=== PATIENT | male | born 1975 | race Caucasian/White ===

== ENCOUNTER 2018-02-24 07:40 | Emergency (ER) | payer BC ==
[~2018-02-24] VITALS: Ht 172.7 cm; Wt 106.1 kg
[~2018-02-24 07:40] MED LIST: AMIT25TA9 PO; ASP81TEC PO; CYCL10TA9 PO; DIAZ5TAB3 PO; DULO30CA PO; GABA800T2 PO; GABAPENTIN PO; HYDR-3720 PO; HYDR1TAB PO; METO50TA7 PO; METR250T; OXYC-12 PO; OXYC5TAB PO; RFMP300C PO; RNT150T; TAPE100T PO; [UNRECOGNIZED DRUG - OTHER] NS
--- OUTSIDE RECORDS SUMMARY | 2018-02-24 07:45 | XMS REPORT ---
Author Author COCO PARKS [facility] Address Unknown Care Team Providers Care Financial Foundations Associate Name Role Phone COCO PARKS Unavailable PROBLEMS Unknown Problems ALLERGIES No Information ENCOUNTERS Encounter Location Date Diagnosis [facility] [id number], [place] [id number] Dec, [facility] [id number] [place] [phone] October, Dental examination Z01.20 [facility] [place] [id number], [place] [id number] October, IMMUNIZATIONS No Known Immunizations SOCIAL HISTORY Never Assessed REASON FOR VISIT LVM PLAN OF CARE VITAL SIGNS MEDICATIONS Unknown Medications RESULTS No Results PROCEDURES No Known procedures INSTRUCTIONS MEDICATIONS ADMINISTERED No Known Medications MEDICAL (GENERAL) HISTORY Type Description Date Medical History high blood pressure Medical History rods in back and both arms Medical History pt is taking atonolol for blood pressure Surgical History back surgery with rods 2009 Surgical History both arms surgery with rods 2014 Hospitalization History just for above surgeries
--- OUTSIDE RECORDS SUMMARY | 2018-02-24 07:45 | XMS REPORT ---
Author Author COCO PARKS [facility] Address Unknown Care Team Providers Care Hospitality Recruiter Name Role Phone COCO PARKS Unavailable PROBLEMS Unknown Problems ALLERGIES No Known Allergies ENCOUNTERS Encounter Location Date Diagnosis [facility] [address] [facility] [id number] [phone] Dec, [facility] [address] [facility] [id number] [place] [phone] October, Dental examination Z01.20 [facility] [address] [id number], [place] [phone] October, IMMUNIZATIONS No Known Immunizations SOCIAL HISTORY Never Assessed REASON FOR VISIT digna PLAN OF CARE Activity Details Follow Up 1 Week Reason:#14-te VITAL SIGNS Blood pressure systolic 150 mmHg 2017-11-05 Blood pressure diastolic 96 mmHg 2017-11-05 MEDICATIONS Medication Instructions Dosage Frequency Start Date End Date Duration Status Gabapentin Active Citalopram Hydrobromide Active Amoxicillin 500 MG Orally three times a day 1 tablet 8h 7 days Active RESULTS No Results PROCEDURES Procedure Date Ordered Result Body Site LTD ORAL EVALUATION - PROBLEM FOCUS November 05, 2017 INTRAORL-PERIAPICAL 1 FILM [id number] November 05, 2017 BITEWING - SINGLE FILM November 05, 2017 INSTRUCTIONS MEDICATIONS ADMINISTERED No Known Medications MEDICAL (GENERAL) HISTORY Type Description Date Medical History high blood pressure Medical History rods in back and both arms Medical History pt is taking atonolol for blood pressure Surgical History back surgery with rods 2009 Surgical History both arms surgery with rods 2014 Hospitalization History just for above surgeries
--- OUTSIDE RECORDS SUMMARY | 2018-02-24 07:46 | XMS REPORT | Continuity of Care Document ---
Author Author [facility] Organization [facility] Address Unknown Phone Unavailable Care Team Providers Care Waterproofer Helper Name Role Phone DAGOBERTO ARROYO MD PP Insurance Providers Payer Name Policy Number Subscriber Name Relationship UMR [id number] Dewey Freitas 01 Self / Same As Patient Advance Directives Directive Response Recorded Date Advance Directives N 02/17/13 6:58am Health Care Power of Db2 Systems Programmer N 02/17/13 6:58am Organ Donor N 02/17/13 6:58am Problems No Known Problems or Medical conditions. Family History History Response Recorded Date/Time Hx Family Cancer Y FATHER FROM CA STOMACH 12/10/08 11:37am Hx Family Cardiac Disorders N 12/10/08 11 :37am Allergies, Adverse Reactions, Alerts Allergen Type Severity Reaction Last Updated No Known Drug Allergies 10/18/08 NKANo Known Allergies Allergy Mild 11/22/08 Medications Medication Dose Units Route Sig Qty Days Aspirin (Aspirin Ec 81 Mg) 81 Mg PO DAILY Metoprolol Succinate (Toprol Xl 50 Mg) 50 Mg PO DAILY Tapentadol Hydrochloride (Nucynta) 100 Mg PO EVENING Duloxetine HCl (Cymbalta) 30 Mg PO DAILY Gabapentin (Neurontin) 800 Mg PO QID Amitriptyline HCl (Amitriptyline Hcl) 50 Mg PO HS Cyclobenzaprine HCl (Cyclobenzaprine Hcl) 10 Mg PO TID PRN Acetaminophen/Hydrocodone Bitart (Hydrocodone-Apap 10-325 Tablet) 1 - 2 Each PO TID PRN [Gabapentin] 800 Mg PO QID PRN [Ketoralac Nasal] NS Q6-8HR PRN Response Recorded Date/Time Status not known Unknown Results Test Date Result Interp. Ref. Range Acetaminophen Level July 02, 2011 4:15pm < 10 UG/ML L 10.0-30.0 Acetaminophen Screen July 02, 2011 4:05pm POSITIVE H - Activated Partial Thromboplast Time February 17, 2013 7:00am 29 SEC N 24-35 Alanine Aminotransferase (ALT/SGPT) February 17, 2013 7:00am 75 U/L H 30-65 Albumin February 17, 2013 7:00am 3.9 G/DL N 3.4-5.0 Alkaline Phosphatase February 17, 2013 7:00am 114 U/L N 50-136 Aspartate Amino Transf (AST/SGOT) February 17, 2013 7:00am 35 U/L N 15-37 B-Type Natriuretic Peptide July 02, 2011 4:15pm 6.8 PG/ML N 5.0-100.0 BUN/Creatinine Ratio February 17, 2013 7:00am 16 - Basophils # (Auto) July 02, 2011 4:15pm 0.0 10^3/uL N 0.0-0.1 Basophils (%) (Auto) July 02, 2011 4:15pm 0 % N 0-10 Blood Urea Nitrogen February 17, 2013 7:00am 16 MG/DL N 7-18 C-Reactive Protein July 30, 2010 12:40am 2.3 MG/DL H 0.2-0.9 Calcium Level February 17, 2013 7:00am 8.5 MG/DL N 8.5-10.1 Carbon Dioxide Level February 17, 2013 7:00am 28 MMOL/L N 21-32 Chloride Level February 17, 2013 7:00am 100 MMOL/L L 101-110 Cholesterol Level February 17, 2013 7:00am 198 MG/DL N -200 Creatine Kinase MB July 02, 2011 4:15pm 1.3 NG/ML N 0.0-3.6 Creatinine February 17, 2013 7:00am 1.0 MG /DL N 0.6-1.3 D-Dimer July 02, 2011 4:15pm < 0.22 UG/ML 0.00-0.49 Eosinophils # (Auto) July 02, 2011 4:15pm 0.1 10^3/uL N 0.0-0.3 Eosinophils (%) (Auto) July 02, 2011 4:15pm 1 % N 0-10 Erythrocyte Sedimentation Rate July 30, 2010 12:40am 42 MM/HR H 0-15 Glucose Level February 17, 2013 7:00am 93 MG/DL N 74-106 HDL Cholesterol February 17, 2013 7:00am 37 MG/DL N 35-60 Hematocrit February 17, 2013 7:00am 45 % N 40-54 Hemoglobin February 17, 2013 7:00am 16.2 G /DL N 13.3-17.7 LDL Cholesterol February 17, 2013 7:00am 131 MG/DL H 0-129 Lipase October 19, 2008 3:50pm 258 U/L N 114-286 Lymphocytes # (Auto) July 02, 2011 4:15pm 3.1 X 10^3 N 1.0-4.0 Lymphocytes (%) (Auto) July 02, 2011 4:15pm 33 % N 12-44 Magnesium Level December 11, 2008 7:45am 1.9 MG/DL N 1.8-2.4 Mean Corpuscular Hemoglobin February 17, 2013 7:00am 31 PG N 25-34 Mean Corpuscular Hemoglobin Concent February 17, 2013 7:00am 36 G/DL N 32-36 Mean Corpuscular Volume February 17, 2013 7:00am 88 FL N 80-99 Mean Platelet Volume February 17, 2013 7:00am 9.2 FL N 7.4-10.4 Monocytes # (Auto) July 02, 2011 4:15pm 0.7 X 10^3 N 0.0-1.0 Monocytes (%) (Auto) July 02, 2011 4:15pm 8 % N 0-12 Neutrophils # (Auto) July 02, 2011 4:15pm 5.5 X 10^3 N 1.8-7.8 Neutrophils (%) (Auto) July 02, 2011 4:15pm 58 % N 42-75 Platelet Count February 17, 2013 7:00am 317 10^3/uL N 130-400 Potassium Level February 17, 2013 7:00am 4.1 MMOL/L N 3.6-5.0 Prothromb Time International Ratio July 02, 2011 4:15pm 0.9 N 0.8-1.4 Prothrombin Time February 17, 2013 7:00am 12.4 SEC N 12.2-14.7 Red Blood Count February 17, 2013 7:00am 5.18 10^6/uL N 4.35-5.85 Red Cell Distribution Width February 17, 2013 7:00am 12.1 % N 10.0-14.5 Sodium Level February 17, 2013 7:00am 137 MMOL/L N 135-145 TSH [place] Testing July 02, 2011 4:15pm 2.15 UIU/ML N 0.34-5.60 Total Bilirubin February 17, 2013 7:00am 0.7 MG/DL N 0.0-1.0 Total Creatine Kinase July 02, 2011 4:15pm 184 U/L N 1-205 Total Protein February 17, 2013 7:00am 7.7 G/DL N 6.4-8.2 Triglycerides Level February 17, 2013 7:00am 150 MG/DL N 30.0-150.0 Troponin I July 02, 2011 4:15pm < 0.10 NG/ML 0.00-0.10 Ur Tricyclic Antidepressants Screen July 02, 2011 4:05pm POSITIVE H - Urine Amphetamines Screen July 02, 2011 4:05pm NEGATIVE - Urine Bacteria July 02, 2011 4:13pm NEGATIVE - Urine Barbiturates Screen July 02, 2011 4:05pm NEGATIVE - Urine Benzodiazepines Screen July 02, 2011 4:05pm NEGATIVE - Urine Bilirubin July 02, 2011 4:13pm NEGATIVE - Urine Casts July 02, 2011 4:13pm NONE - Urine Clarity July 02, 2011 4:13pm CLEAR - Urine Cocaine Screen July 02, 2011 4:05pm NEGATIVE - Urine Color July 02, 2011 4:13pm YELLOW - Urine Crystals July 02, 2011 4:13pm NONE - Urine Culture Indicated July 02, 2011 4:13pm NO - Urine Glucose (UA) July 02, 2011 4:13pm NEGATIVE - Urine Ketones July 02, 2011 4:13pm NEGATIVE - Urine Leukocyte Esterase July 02, 2011 4:13pm NEGATIVE - Urine Methamphetamines Screen July 02, 2011 4:05pm NEGATIVE - Urine Mucus July 02, 2011 4:13pm NEGATIVE - Urine Nitrite July 02, 2011 4:13pm NEGATIVE - Urine Opiates Screen July 02, 2011 4:05pm POSITIVE H - Urine Phencyclidine Screen July 02, 2011 4:05pm NEGATIVE - Urine Protein July 02, 2011 4:13pm NEGATIVE - Urine RBC July 02, 2011 4:13pm NONE / HPF - Urine Specific [place] July 02, 2011 4:13pm 1.005 L - Urine Urobilinogen July 02, 2011 4:13pm NORMAL MG/DL - Urine WBC July 02, 2011 4:13pm RARE / HPF - Urine pH July 02, 2011 4:13pm 8.0 - VLDL Cholesterol February 17, 2013 7:00am 30 MG/DL N 5-40 White Blood Count February 17, 2013 7:00am 6.8 10^3/uL N 4.3-11.0 Serum Alcohol July 02, 2011 4:15pm < 5 MG/DL -5 Estimat Glomerular Filtration Rate February 17, 2013 7:00am > 60 - Urine Methadone Screen July 02, 2011 4:05pm NEGATIVE - Urine Cannabinoids Screen July 02, 2011 4:05pm NEGATIVE - Urine RBC (Auto) July 02, 2011 4:13pm NEGATIVE - INR Comment February 17, 2013 7:00am 0.9 N 0.8-1.4 Procedures Procedure Code Date CARPAL TUNNEL SURGERY 21471 06/14/08 UPPER GI ENDOSCOPY BIOPSY 37628 09/06/08 LAPAROSCOPIC CHOLECYSTECTOMY 79582 LAPAROSCOPIC REPAIR OF DIAPHRAGMATIC HRN, ABDOMINAL APPROACH 53.71 12/10/08 COLONOSCOPY AND BIOPSY 94984 04/04/09 MRSA Screen 12/06/08 Encounters Encounter Location Date/Time Departed Emergency Room [facility] 03/05 3:46pm Discharged Inpatient [facility] 12: 00am
--- OUTSIDE RECORDS SUMMARY | 2018-02-24 07:46 | XMS REPORT | Continuity of Care Document ---
Author Author [facility] Organization [facility] Address Unknown Phone Unavailable Care Team Providers Care Perlite Grinder Name Role Phone DAGOBERTO ARROYO MD PP Insurance Providers Payer Name Policy Number Subscriber Name Relationship R [id number] Dewey Freitas 01 Self / Same As Patient Advance Directives Directive Response Recorded Date Advance Directives N 02/18/13 6:12am Health Care Power of Spiritual Counselor N 02/18/13 6:12am Organ Donor N 02/18/13 6:12am Problems No Known Problems or Medical conditions. Family History History Response Recorded Date/Time Hx Family Cancer Y FATHER FROM CA STOMACH 12/10/08 11:37am Hx Family Cardiac Disorders N 12/10/08 11 :37am Social History History Response Recorded Date/Time Alcohol Use Denies Use 02/18/13 6:12am Recreational Drug Use N 02/18/13 6:12am Sexually Transmitted Disease N 02/18/13 6 :12am Allergies, Adverse Reactions, Alerts Allergen Type Severity [...] Recorded Date/Time Status not known Unknown Results No Known Relevant Diagnostic Tests, Laboratory Data and/or Discharge Summary. Procedures Procedure Code Date CARPAL TUNNEL SURGERY 30750 06/14/08 UPPER GI ENDOSCOPY BIOPSY 07391 09/06/08 LAPAROSCOPIC CHOLECYSTECTOMY 61199 LAPAROSCOPIC REPAIR OF DIAPHRAGMATIC HRN, ABDOMINAL APPROACH 53.71 12/10/08 COLONOSCOPY AND BIOPSY 25633 04/04/09 Encounters Encounter Location Date/Time Departed Emergency Room [facility] 6:09am Discharged Inpatient [facility] 12: 00am
--- OUTSIDE RECORDS SUMMARY | 2018-02-24 07:46 | XMS REPORT | Continuity of Care Document ---
Author Author [facility] Organization [facility] Address Unknown Phone Unavailable Allergies Active Description Code Type Severity Reaction Onset Reported/Identified Relationship to Patient Clinical Status Yes No Known Drug Allergies [id number] Drug Allergy Unknown N/A 10/18/2008 Yes NKANo Known Allergies NKA Miscellaneous Allergy Mild N/A 11/22/2008 Medications There is no data. Problems Date Dx Coded Attending Type Code Diagnosis Diagnosed By 07/30/2010 Ot 338.18 07/30/2010 Ot 724.2 10/09/2010 Ot 722.93 07/02/2011 Ot 784.2 07/02/2011 Ot 995.27 07/02/2011 Ot E000.8 07/02/2011 Ot E947.9 02/17/2013 SHERWIN LIGHT MD, FACC FACP CCDS Ot 401.9 HYPERTENSION NOS 02/17/2013 KULDEEP LUCAS FACC, SHERWIN FACP CCDS Ot 427.89 CARDIAC DYSRHYTHMIAS NEC 02/17/2013 SHERWIN LIGHT MD, FACC FACP CCDS Ot 724.5 BACKACHE NOS 02/17/2013 SHERWIN LIGHT MD, FACC FACP CCDS Ot 786.09 RESPIRATORY ABNORM NEC 02/17/2013 SHERWIN LIGHT MD, FACC FACP CCDS Ot 786.59 CHEST PAIN NEC 02/17/2013 SHERWIN LIGHT MD, FACC FACP CCDS Ot V17.49 FAMILY HISTORY OF OTHER CARDIOVASCULAR D 02/17/2013 SHERWIN LIGHT MD, FACC FACP CCDS Ot V58.69 OTH MED,LT,CURRENT USE 02/18/2013 JAYNE SNYDER DO Ot 788.20 RETENTION OF URINE NOS 02/18/2013 JAYNE SNYDER DO Ot V45.82 PERCUTANEOUS TRANSLUM CORON ANGIOPLASTY 02/18/2013 JAYNE SNYDER DO Ot V45.89 POSTSURGICAL STATES NEC 07/13/2015 SHERWIN LIGHT MD, FACC FACP CCDS Ot V17.41 07/13/2015 SHERWIN LIGHT MD, FACC, FACP CCDS Ot V81.2 07/18/2015 KULDEEP LUCAS FACC, SHERWIN FACP CCDS Ot V17.41 07/18/2015 KULDEEP LUCAS FACC, SHERWIN FACP CCDS Ot V81.2 04/29/2017 KULDEEP LUCAS FACC, SHERWIN FACP CCDS Ot V17.41 FAMILY HISTORY OF SUDDEN CARDIAC ( 04/29/2017 KULDEEP LUCAS FACC, SHERWIN CHAVIRAP CCDS Ot V81.2 SCREEN-CARDIOVASC NEC 05/02/2017 JUAN FRANCISCO MARTIN DOIE O Ot M51.37 OTHER INTERVERTEBRAL DISC DEGENERATION, 05/02/2017 MARTIN DO, SHILPA O Ot Z98.1 ARTHRODESIS STATUS 06/05/2017 MARTIN DOJUAN FRANCISCOIE O Ot M51.37 OTHER INTERVERTEBRAL DISC DEGENERATION, 06/05/2017 MARTIN DO, SHILPA O Ot Z98.1 ARTHRODESIS STATUS 06/06/2017 MARTIN DO, SHILPA O Ot M51.37 OTHER INTERVERTEBRAL DISC DEGENERATION, 06/06/2017 MARTIN DO, SHILPA O Ot Z98.1 ARTHRODESIS STATUS Procedures There is no data. Results There is no data. Encounters ACCT No. Visit Date/Time Discharge Status Pt. Type Provider Facility Loc./Unit Complaint [id number] 05/01/2017 16:01:00 05/01/2017 23:59:59 CLS Outpatient SHILPA MARTIN DO [facility] RAD M54.5 CHRONIC LOW BACK PAIN [id number] 02/15/2014 11:11:00 02/15/2014 23:59:59 CLS Outpatient [id number] 02/24/2013 09:46:00 02/24/2013 23:59:59 CLS Outpatient SHERWIN LIGHT MD, FACC, FACP CCDS [facility] CARD FAMILY HSTY OF SUDDEN CARDIAC [id number] 02/18/2013 06:09:00 02/18/2013 08:00:00 DIS Emergency JAYNE SNYDER DO [facility] ER RT SIDE PAIN,CAN'T URINATE,HRT CATH YESTERDAY [id number] 02/17/2013 06:37:00 02/17/2013 12:35:00 DIS Outpatient SHERWIN LIGHT MD, FACCP CCDS [facility] CATH ANGINA,SOB, FATIGUE,FAMILY HX OF SUDDEN CARDIAC JASMIN [id number] 07/13/2015 10:56:00 Document Registration [id number] 08/17/2014 18:30:00 Document Registration [id number] 07/02/2011 15:46:00 Document Registration [id number] 07/30/2010 00:03:00 Document Registration [id number] 07/23/2010 16:52:00 Document Registration [id number] 11/05/2017 16:00:00 11/05/2017 23:59:59 CLS Outpatient [facility]
--- NOTE | 2018-02-24 07:51 | ED Integumentary General ---
General Stated Complaint: FISHING HOOK IN HEAD Source: patient, spouse Exam Limitations: no limitations History of Present Illness Date Seen by Provider: Feb 24, 2018 Time Seen by Provider: 07:42 Initial Comments Patient presents to the ER by private conveyance with his and chief complaint that this morning he got a treble hook stuck in the right side of his parietal scalp. He tried taking it out but couldn't get it out. He says he had a tetanus shot earlier this year. He is not on blood thinners. No fevers chills nausea vomiting. Allergies and Home Medications Allergies Coded Allergies: Shaye Known Allergies (Unverified Allergy, Mild, 11/22/08) No Known Drug Allergies (Verified , 10/18/08) Home Medications Amitriptyline Hcl 25 Mg Tablet, 50 MG PO HS, (Reported) PATIENT TAKES TWO 25 MG TABLETS AT BEDTIME Aspirin 81 Mg Tabec, 81 MG PO DAILY, (Reported) Cyclobenzaprine Hcl 10 Mg Tablet, 10 MG PO TID PRN, (Reported) PRN PAIN Duloxetine Hcl 30 Mg Capsule.dr, 30 MG PO DAILY, (Reported) Gabapentin 800 Mg Tablet, 800 MG PO QID, (Reported) Hydrocodone Bit/Acetaminophen 1 Each Tablet, 1-2 EACH PO TID PRN, (Reported) PRN PAIN Metoprolol Succinate 50 Mg Tab.sr.24h, 50 MG PO DAILY, (Reported) Tapentadol Hydrochloride 100 Mg Tablet, 100 MG PO EVENING, (Reported) Patient Home Medication List Home Medication List Reviewed: Yes Review of Systems Review of Systems Constitutional: No chills, No diaphoresis EENTM: No hearing loss, No ear pain Respiratory: No cough, No dyspnea on exertion Cardiovascular: No chest pain, No edema Past Yuvzsqx-Anlcrl-Fhkeap Hx Past Medical History Reproductive Disorders: No Sexually Transmitted Disease: No Physical Exam Vital Signs Vital Signs - First Documented 02/24/18 07:49 Temp 97.7 Pulse 63 Resp 20 B/P (MAP) 143/92 (109) Pulse Ox 97 O2 Delivery Room Air Capillary Refill : General Appearance: WD/WN, no apparent distress Cardiovascular: normal peripheral pulses, regular rate, rhythm Respiratory: no respiratory distress, no accessory muscle use Neurologic/Psychiatric: alert, normal mood/affect, oriented x 3 Skin: normal color, warm/dry, other (single barbed hook in the right occipital/ parietal scalp from a treble hook) Procedures/Interventions I&D : Site: Right Parietal Scalp Blade Size: 11 I & D Procedure: betadine prep Progress The basilar hook was numbed up using 2 cc of 1% lidocaine without epinephrine. Then using 11 blade scalpel we extended the wound about 1 cm total to accommodate removing the isis. The barbed then backed out very easily without any extra tissue damage. The wound was cleaned and stapled with 2 bee. Progress/Results/Core Measures Results/Orders My Orders Orders - KEYANA HEREDIA Lidocaine 1% Inj 20 Ml (Xylocaine 1% Inj (02/24/18 08:00) Vital Signs/I&O 02/24/18 07:49 Temp 97.7 Pulse 63 Resp 20 B/P (MAP) 143/92 (109) Pulse Ox 97 O2 Delivery Room Air Progress Progress Note : Time: 07:50 Progress Note Tetanus is up-to-date. Running red and injected with some lidocaine and see if we can either passed over the rest the way through or make a small incision and removed the hook and isis of the way it entered. Departure Impression Primary Impression: Foreign body of skin of scalp Qualified Codes: S00.05XA - Superficial foreign body of scalp, initial encounter Disposition: 01 HOME, SELF-CARE Condition: Improved Departure-Patient Inst. Decision time for Depature: 08:09 Referrals: DAGOBERTO ARROYO MD (PCP/Family) Primary Care Physician Patient Instructions: Laceration Repair With Bee (DC) Add. Discharge Instructions: Keep the wound clean with regular soap and water or shampoo and return to the ER in 5-7 days for staple removal. If you start to have swelling redness, fever , nausea etc. then you should see a doctor sooner. KEYANA HEREDIA Feb 24, 2018 07:51
[2018-02-24] MEDS ORDERED: LIDOCAINE 1% INJ 20 ML 20 ML VIAL INJ ONE (08:00)
[2018-02-24 08:17] VITALS: BP 143/92
== END 2018-02-24 08:19 | disposition home or self-care (01) ==
LOC: EDUNIT# 07:40 → ER 07:41
DX: S00.05XA Superficial foreign body of scalp, initial encounter (principal); Z79.82 Long term (current) use of aspirin; W26.8XXA Contact with other sharp object(s), not elsewhere classified, initial encounter

== ENCOUNTER 2020-07-02 17:33 | Emergency (ER) | payer BC, OTHER ==
[~2020-07-02] VITALS: Ht 172 cm; Wt 113.0 kg
[2020-07-02 17:35] VITALS: BP 162/87
[2020-07-02] MEDS ORDERED: TETANUS,DIPTH,PERTUSS P/F (BOOSTRIX) 0.5 ML VIAL IM ONE (17:45)
[2020-07-02] MEDS ORDERED: oxyCODONE/APAP 5/325MG (PERCOCET 5) TABLET PO ONE (17:45)
--- NOTE | 2020-07-02 17:48 | ED Lower Extremity ---
General Stated Complaint: DROPPED TREADMILL ON L LEG Source: patient Exam Limitations: no limitations History of Present Illness Date Seen by Provider: Jul 02, 2020 Time Seen by Provider: 17:45 Initial Comments To ER with left lower leg pain after he dropped a heavy part of a treadmill on it. He is able to bear weight. Onset: just prior to arrival Severity: moderate Pain/Injury Location: left leg Method of Injury: direct blow Modifying Factors: Worse With Movement Allergies and Home Medications Allergies Coded Allergies: NKANo Known Allergies (Unverified Allergy, Mild, 11/22/08) No Known Drug Allergies (Verified , 10/18/08) Patient Home Medication List Home Medication List Reviewed: Yes Review of Systems Constitutional: see HPI EENTM: see HPI Respiratory: no symptoms reported Cardiovascular: no symptoms reported Genitourinary: no symptoms reported Musculoskeletal: no symptoms reported Skin: no symptoms reported Psychiatric/Neurological: No Symptoms Reported Past Jbrivmf-Kciwyf-Ckpdgz Hx Patient Social History Recent Foreign Travel: No Contact w/Someone Who Travel: No Recent Hopitalizations: No Seasonal Allergies Seasonal Allergies: No Past Medical History Surgeries: Yes (BACK) Respiratory: No Cardiac: Yes (HEART CATH) Neurological: No Reproductive Disorders: No Sexually Transmitted Disease: No Genitourinary: No Gastrointestinal: No Musculoskeletal: No Endocrine: No Cancer: No Psychosocial: No Blood Disorders: No Physical Exam Vital Signs Vital Signs - First Documented 07/02/20 17:35 Temp 37.0 Pulse 81 Resp 16 B/P (MAP) 162/87 (112) Pulse Ox 97 O2 Delivery Room Air Capillary Refill : Height, Weight, BMI Height: 5'8" Weight: 234lbs. oz. 106.972748kv; 35.58 BMI Method:Stated General Appearance: WD/WN, no apparent distress Respiratory: no respiratory distress, no accessory muscle use Hips: bilateral hip non-tender, bilateral hip normal inspection, bilateral hip normal range of motion Legs: left leg pain, left leg soft tissue tenderness, left leg swelling, left leg other (There is an abrasion with some taut swelling over the anterior portion of the left lower leg. The right calf measures circumference 45.5 cm, the left calf circumference measures 44.5 cm. There is a strong dorsalis pedis pulse. He is able to flex and extend his foot.) Ankles: bilateral ankle non-tender, bilateral ankle normal inspection, bilateral ankle normal range of motion Feet: bilateral foot non-tender, bilateral foot normal inspection, bilateral foot normal range of motion Neurologic/Psychiatric: alert, normal mood/affect, oriented x 3 Skin: normal color, warm/dry Progress/Results/Core Measures Results/Orders My Orders Orders - NIKKO BARBOSA APRN Oxycodone/Apap 5/325mg Tablet (Percocet (07/02/20 17:45) Dipht,Pertuss(Acell),Tet Adult (Boostrix (07/02/20 17:45) Tibia/Fibula, Left, 2 Views (07/02/20 17:41) Rx-Oxycodone/Apap 5-325 Mg (Rx-Percocet (07/02/20 18:45) Medications Given in ED Current Medications Medications Dose Ordered Sig/Siri Route Start Time Stop Time Status Last Admin Dose Admin Diphtheria/ Tetanus/Acell Pertussis 0.5 ml ONCE ONCE IM 07/02/20 17:45 07/02/20 17:46 DC 07/02/20 17:54 0.5 ML Oxycodone/ Acetaminophen 1 ea Q4H PRN PO 07/02/20 18:45 07/02/20 18:39 DC 07/02/20 18:37 1 EA Oxycodone/ Acetaminophen 1 tab ONCE ONCE PO 07/02/20 17:45 07/02/20 17:46 DC 07/02/20 17:52 1 TAB Vital Signs/I&O 07/02/20 17:35 Temp 37.0 Pulse 81 Resp 16 B/P (MAP) 162/87 (112) Pulse Ox 97 O2 Delivery Room Air Departure Impression Primary Impression: Subperiosteal hematoma Disposition: 01 HOME, SELF-CARE Condition: Stable Departure-Patient Inst. Decision time for Depature: 17:49 Referrals: DAGOBERTO ARROYO MD (PCP/Family) Primary Care Physician Patient Instructions: HEMATOMA Add. Discharge Instructions: 1. Ice pack to the area several times daily for about 30 minutes each time. Pain medication as needed. Return to ER for any concerns. Follow up with Dr Arroyo next week. NIKKO BARBOSA APRN Jul 02, 2020 17:48
[2020-07-02] MEDS ORDERED: ESCI20TA45 (17:59)
[2020-07-02] MEDS ORDERED: CARB200C6 (17:59)
--- NOTE | 2020-07-02 18:39 | NUR ---
PT STATES THE PAIN MEDICATION HAS HELPED.
--- NOTE | 2020-07-02 18:40 | Diagnostic Imaging Report ---
INDICATION: Injury to left leg, laceration. EXAMINATION: AP and lateral views of the left tibia and fibula were obtained. FINDINGS: There is no fracture or radiopaque foreign body. IMPRESSION: No evidence of fracture or radiopaque foreign body. Dictated by: Dictated on workstation # [id number]
[2020-07-02] MEDS ORDERED: RX-OXYCODONE/APAP 5-325 MG #4 TAB PK PO PRN (18:45)
== END 2020-07-02 18:39 | disposition home or self-care (01) ==
LOC: EDUNIT# 17:33 → ER 17:35
DX: S80.12XA Contusion of left lower leg, initial encounter (principal); Z95.9 Presence of cardiac and vascular implant and graft, unspecified; Z23 Encounter for immunization; W31.9XXA Contact with unspecified machinery, initial encounter
CPT/HCPCS: 73590; 90715

== ENCOUNTER 2021-02-24 09:11 | Emergency (ER) | payer OTHER ==
[~2021-02-24] VITALS: Ht 172.7 cm; Wt 102.1 kg
[~2021-02-24 09:11] MED LIST changes: +CARB200C6; +ESCI20TA39
--- OUTSIDE RECORDS SUMMARY | 2021-02-24 09:17 | XMS REPORT | Clinical Summary ---
Author Author [facility] Organization [facility] Address Unknown Phone Unavailable Care Team Providers Care Social Economist Name Role Phone PCP Unavailable Allergies Not on File Medications Not on file Active Problems Not on file Social History Date Tobacco Use Types Packs/Day Years Used Never Assessed Sex Assigned at Date Recorded Not on file Last Filed Vital Signs Not on file Plan of Treatment Not on file Results Not on filefrom Last 3 Months
--- NOTE | 2021-02-24 10:54 | ED Lower Extremity ---
General Chief Complaint: Upper Extremity Stated Complaint: R KNEE PAIN/SWELLING Nursing Triage Note: PT AMB TO TRIAGE WITH COMPLAINT OF RIGHT KNEE PAIN. STATES HE WENT TO URGENT CARE A WEEK AGO AND WAS GIVEN MELOXICAM AND A BRACE. STATES PAIN IS WORSENING, AND LAST NIGHT HIS LEG WAS SWOLLEN FROM THE KNEE DOWN. DENIES INJURY. Source: patient Exam Limitations: no limitations (NIKKO BARBOSA APRN) History of Present Illness Date Seen by Provider: Feb 24, 2021 Time Seen by Provider: 10:51 Initial Comments To ER with reports of right knee and lower extremity pain for about a week. He went to urgent care a week ago and was given meloxicam. Denies improvement. Starting yesterday over the midline knee below the patella he noticed some swelling as well as swelling from the knee distally. He has some chronic right lower extremity pain issues secondary to a back surgery complicated by infection he states. 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 Onset: just prior to arrival Severity: moderate Pain/Injury Location: right leg Method of Injury: unknown Modifying Factors: Worse With Movement (NIKKO BARBOSA APRN) Allergies and Home Medications Allergies Coded Allergies: NKANo Known Allergies (Unverified Allergy, Mild, 11/22/08) No Known Drug Allergies (Verified , 10/18/08) Patient Home Medication List Home Medication List Reviewed: Yes (NIKKO BARBOSA APRN) Carbamazepine (Carbamazepine) 200 Mg Cpmp.12hr, (Reported) Entered as Reported by: HAILY JAMISON on 07/02/201758 Escitalopram Oxalate (Escitalopram Oxalate) 20 Mg Tablet, (Reported) Entered as Reported by: HAILY JAMISON on 07/02/20 175 Prednisone (Prednisone) 20 Mg Tab, 40 MG PO DAILY Prescribed by: NIKKO BARBOSA on 02/24/21 1148 Review of Systems Constitutional: see HPI EENTM: see HPI Respiratory: no symptoms reported Cardiovascular: no symptoms reported Genitourinary: no symptoms reported Musculoskeletal: see HPI Skin: no symptoms reported Psychiatric/Neurological: No Symptoms Reported (NIKKO BARBOSA APRN) Past Vyzvure-Sldlmn-Iwatpt Hx Patient Social History Tobacco Use?: No Use of E-Cig and/or Vaping dev: No Substance use?: No Alcohol Use?: No Pt feels they are or have been: No (NIKKO BARBOSA APRN) Seasonal Allergies Seasonal Allergies: No (NIKKO BARBOSA APRN) Past Medical History Surgeries: Yes (BACK) Respiratory: No Cardiac: Yes (HEART CATH) Hypertension Neurological: No Reproductive Disorders: No Sexually Transmitted Disease: No Genitourinary: No Gastrointestinal: No Musculoskeletal: No Endocrine: No Cancer: No Psychosocial: No Integumentary: No Blood Disorders: No (NIKKO BARBOSA APRN) Physical Exam Vital Signs Vital Signs - First Documented 02/24/21 09:19 Pulse 88 Resp 16 B/P (MAP) 130/89 (103) Pulse Ox 98 O2 Delivery Room Air (CHRISTA DAILY MD) Vital Signs Capillary Refill : Less Than 3 Seconds (NIKKO BARBOSA APRN) Height, Weight, BMI Height: 5'8" Weight: 234lbs. oz. 106.338058yi; 34.00 BMI Method:Stated General Appearance: WD/WN, no apparent distress HEENT: PERRL/EOMI, normal ENT inspection Neck: non-tender, full range of motion Respiratory: no respiratory distress, no accessory muscle use Hips: bilateral hip non-tender, bilateral hip normal inspection, bilateral hip normal range of motion Legs: bilateral leg non-tender, bilateral leg normal inspection, bilateral leg normal range of motion; right leg other (No appreciable swelling to the right leg at this time though he does have a picture from last night it was quite swollen by comparison) Knees: right knee other (Over the midline lower extremity at the proximal tibia at the patellar tendon insertion site there is some swelling. On bedside ultrasound there is a small amount of fluid surrounding the patellar tendon. There is no erythema. There is no palpable knee effusion. This seems a bit more lateral than I would expect for Pes anserine bursa) Ankles: bilateral ankle non-tender, bilateral ankle normal inspection, bilat eral ankle normal range of motion Feet: bilateral foot non-tender, bilateral foot normal inspection, bilateral foot normal range of motion Neurologic/Psychiatric: alert, normal mood/affect, oriented x 3 Skin: normal color, warm/dry (NIKKO BARBOSA APRN) Progress/Results/Core Measures Results/Orders Vital Signs/I&O 02/24/21 02/24/21 09:19 11:50 Pulse 88 88 Resp 16 16 B/P (MAP) 130/89 (103) 130/89 Pulse Ox 98 98 O2 Delivery Room Air Room Air (CHRISTA DAILY MD) Blood Pressure Mean: 103 Departure Impression Primary Impression: Patellar tendinitis of right knee Disposition: HOME, SELF-CARE Condition: Stable Departure-Patient Inst. Decision time for Depature: 11:48 (NIKKO BARBOSA APRN) Referrals: DAGOBERTO ARROYO MD (PCP/Family) Primary Care Physician Patient Instructions: Overuse Injuries, Using Cold for Pain Add. Discharge Instructions: 1. Ice pack to the area 2. Steroids as directed 3. Follow-up with your doctor next week. All discharge instructions reviewed with patient and/or family. Voiced understanding. Scripts Prednisone (Prednisone) 20 Mg Tab 40 MG PO DAILY, #8 TAB 0 Refills Prov: NIKKO BARBOSA APRN 02/24/21 ATTENDING PHYSICIAN NOTE: I was physically present as attending physician in the emergency department during the care of this patient, but I was not directly involved in the decision making or delivery of care for this patient. (CHRISTA DAILY MD) NIKKO BARBOSA APRN Feb 24, 2021 10:54 CHRISTA DAILY MD Feb 24, 2021 20:09
[2021-02-24] MEDS ORDERED: PRD20T PO (11:48)
[2021-02-24 11:50] VITALS: BP 130/89
--- NOTE | 2021-02-24 12:42 | Diagnostic Imaging Report ---
INDICATION: Right leg swelling. Right leg venous Doppler study was performed in the routine fashion with color flow Doppler and waveform analysis. FINDINGS: The right common femoral vein, superficial femoral vein, popliteal vein and visualized portion of the tibial veins show normal compressibility and venous flow patterns. There is normal augmentation. IMPRESSION: No evidence of deep vein thrombosis of the major veins of the right leg. Dictated by: Dictated on workstation # [id number]
== END 2021-02-24 11:50 | disposition home or self-care (01) ==
LOC: EDUNIT# 09:11 → ER 09:13
DX: M76.51 Patellar tendinitis, right knee (principal); I10 Essential (primary) hypertension

== ENCOUNTER 2022-02-25 19:06 | Emergency (ER) | payer OTHER ==
[~2022-02-25] VITALS: Ht 172 cm; Wt 104.0 kg
[~2022-02-25 19:06] MED LIST changes: +PRD20T PO
--- NOTE | 2022-02-25 19:26 | ED Upper Extremity ---
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 ARROYO Allergies and Home Medications Allergies Coded Allergies: NKANo Known Allergies (Unverified Allergy, Mild, 11/22/08) No Known Drug Allergies (Verified , 10/18/08) Patient Home Medication List Home Medication List Reviewed: Yes Carbamazepine (Carbamazepine) 200 Mg Cpmp.12hr, (Reported) Entered as Reported by: HAILY JAMISON on 07/02/201758 Cephalexin (Cephalexin) 500 Mg Tablet, 500 MG PO QID Prescribed by: PEPPER ANDINO on 02/25/221956 Escitalopram Oxalate (Escitalopram Oxalate) 20 Mg Tablet, (Reported) Entered as Reported by: HAILY JAMISON on 07/02/201758 Prednisone (Prednisone) 20 Mg Tab, 40 MG PO DAILY Prescribed by: NIKKO BARBOSA on 02/24/21 1148 Review of Systems Constitutional: no symptoms reported Musculoskeletal: see HPI Skin: see HPI Psychiatric/Neurological: No Symptoms Reported Past Hxgkcji-Lwwwko-Hllbnd Hx Patient Social History Tobacco Use?: No Substance use?: No Alcohol Use?: No Immunizations Up To Date Tetanus Booster (TDap): Less than 5yrs (07/02/2020) Seasonal Allergies Seasonal Allergies: No Past Medical History Surgeries: Yes (BACK SURGERY; CARDIAC CATH-NO INTERVENTION) Cardiac, Orthopedic Respiratory: No Cardiac: Yes (HEART CATH) Hypertension Neurological: No Reproductive Disorders: No Sexually Transmitted Disease: No Genitourinary: No Gastrointestinal: No Musculoskeletal: Yes (BACK SURGERY) Chronic Back Pain Endocrine: No HEENT: No Cancer: No Psychosocial: No Integumentary: No Blood Disorders: No Family Medical History CARDIAC CATH 02/17/[address] LIGHT--SCREENING EXAM DUE TO VERY STRONG HISTORY OF CARDIOVASCULAR DISEASE ESSENTIALLY NORMAL EXAM, WITH EF OF 60% Physical Exam Vital Signs Vital Signs - First Documented 02/25/22 19:18 Pulse 88 Resp 18 B/P (MAP) 137/96 (110) Pulse Ox 95 O2 Delivery Room Air Capillary Refill : Height, Weight, BMI Height: 5'8" Weight: 234lbs. oz. 106.686456vu; 34.00 BMI Method:Stated General Appearance: WD/WN, no apparent distress Hand: Left (INDEX FINGER), bone tenderness, laceration (LACERATION OVER DORSAL ASPECT OF PIP JOINT OF LEFT INDEX FINGER. NO ACTIVE BLEEDING. MOTOR/SENSORY/VASCULAR INTACT), limited ROM, soft tissue tenderness Procedures/Interventions Other Wound Location LEFT INDEX FINGER Wound Length (cm): 1.2 Wound's Depth, Shape: linear, sub Q Wound Explored: FB NOTED ON XRAYS, BUT NOT VISIBLE ON EXAM. Irrigated w/ Saline (ccs): 500 Betadine Prep?: No (BETASEPT) Anesthesia: 1% Lidocaine Wound Debrided: minimal Suture: Ethlion Suture Size: 4-0 Number of Sutures: 4 Sterile Dressing Applied?: Yes Progress WOUND IS LINEAR, BUT EDGES ARE ESSENTIALLY CAUTERIZED FROM THE INSTRUMENT REPAIR SUPERVISOR NO VISIBLE FOREIGN BODY ON EXAM, BUT WOUND PROFUSELY IRRIGATED AND SCRUBBED. RI NIMAL DEBRIDEMENT TO CAUTERIZED SKIN EDGES. RISKS OF POSSIBLE RETAINED FOREIGN MATERIAL DISCUSSED WITH PT AND . WOUND DRESSED WITH ANTIBIOTIC OINTMENT AND STERILE GAUZE FINGER SPLINT APPLIED. PT TOLERATED VERY WELL. Progress/Results/Core Measures Results/Orders My Orders Orders - PEPPER ANDINO DO Finger(S) (02/25/22 19:22) Dipht,Pertuss(Acell),Tet Adult (Boostrix (02/25/22 19:30) Lidocaine 1% Inj 20 Ml (Xylocaine 1% Inj (02/25/22 19:45) Ed Ortho/Other Supplies Order (02/25/22 19:54) Wound Dressing-Ed (02/25/22 19:54) Rx-Cephalexin Capsule (Rx-Keflex Capsule (02/25/22 19:54) Medications Given in ED Current Medications Medications Dose Ordered Sig/Siri Route Start Time Stop Time Status Last Admin Dose Admin Lidocaine HCl 20 ml ONCE ONCE IJ 02/25/22 19:45 02/25/22 19:46 DC 02/25/22 19:43 20 ML Vital Signs/I&O 02/25/22 19:18 Pulse 88 Resp 18 B/P (MAP) 137/96 (110) Pulse Ox 95 O2 Delivery Room Air Diagnostic Imaging Comments XRAYS LEFT INDEX FINGER--PER RADIOLOGIST REPORT AT 1957 FINDINGS AND IMPRESSION: There is no fracture or dislocation. There is focal soft tissue calcification near the 2nd DIP and PIP joint regions. There is amorphous focal areas of increased density seen dorsal to the 2nd PIP joint region which may be related to recent injury and foreign objects. Reviewed: Reviewed by Me Departure Impression Primary Impression: Laceration of left index finger with foreign body Disposition: HOME, SELF-CARE Condition: Stable Departure-Patient Inst. Decision time for Depature: 19:55 Referrals: DAGOBERTO ARROYO MD (PCP/Family) Primary Care Physician Patient Instructions: Laceration Repair With Stitches (DC), SPLINT CARE Add. Discharge Instructions: LEAVE DRESSING IN PLACE FOR 24 HOURS, THEN CLEAN TWICE A DAY WITH SOAP AND WATER ON A Q-TIP. OTHERWISE KEEP CLEAN AND DRY AT ALL TIMES DRESS WITH BANDAID / FRESH DRESSING TWICE A DAY WEAR SPLINT AT ALL TIMES TYLENOL AND MOTRIN NEEDED FOR PAIN RETURN TO ER IN 10 DAYS FOR SUTURE REMOVAL, OR SOONER IF PROBLEMS All discharge instructions reviewed with patient and/or family. Voiced understanding. Scripts Cephalexin (Cephalexin) 500 Mg Tablet 500 MG PO QID, #20 TAB 0 Refills Prov: PEPPER ANDINO DO 02/25/22 Work/School Note: Work Release Form Date Seen in the Emergency Department: Feb 25, 2022 Return to Work: Feb 27, 2022 Other Restrictions Listed Below: NO USE OF LEFT HAND FOR 10 DAYS, MUST WEAR A FINGER SPLINT AT ALL TIMES PEPPER ANDINO DO Feb 25, 2022 19:26
[2022-02-25] MEDS ORDERED: TETANUS,DIPTH,PERTUSS P/F (BOOSTRIX) 0.5 ML VIAL IM ONE (19:30)
[2022-02-25] MEDS ORDERED: LIDOCAINE 1% INJ 20 ML VIAL IJ ONE (19:45)
[2022-02-25] MEDS ORDERED: RX-CEPHALEXIN (KEFLEX) 250 MG CAP PPK#4 PO STA (19:54)
[2022-02-25] MEDS ORDERED: CEPH500T PO (19:57)
--- NOTE | 2022-02-25 19:58 | Diagnostic Imaging Report ---
CLINICAL INDICATION: Patient with left index finger laceration. EXAM: X-ray of the left 2nd finger, multiple views. COMPARISON: None. FINDINGS AND IMPRESSION: There is no fracture or dislocation. There is focal soft tissue calcification near the 2nd DIP and PIP joint regions. There is amorphous focal areas of increased density seen dorsal to the 2nd PIP joint region which may be related to recent injury and foreign objects. Dictated by: Dictated on workstation # [id number]
[2022-02-25 20:05] VITALS: BP 137/96
== END 2022-02-25 20:05 | disposition home or self-care (01) ==
LOC: EDUNIT# 19:06 → ER 19:08
DX: S61.221A Laceration with foreign body of left index finger without damage to nail, initial encounter (principal); Z23 Encounter for immunization; W29.8XXA Contact with other powered hand tools and household machinery, initial encounter; Y92.009 Unspecified place in unspecified non-institutional (private) residence as the place of occurrence of the external cause
CPT/HCPCS: 73140

== ENCOUNTER 2023-02-19 18:03 | Emergency (ER) | payer OTHER ==
[~2023-02-19] VITALS: Ht 172.7 cm; Wt 105.0 kg
[~2023-02-19 18:03] MED LIST changes: +CEPH500T PO
--- NOTE | 2023-02-19 18:19 | ED Cardiac General ---
History of Present Illness General Chief Complaint: Cardiac/General Problems Stated Complaint: BLURRY VISON, BLOOD PRESSURE ISSUE, SHOULDER TINGL Nursing Triage Note: pt to ed with c/o high bp, headache for 2 days, intermittent blurred vision Source: patient Exam Limitations: no limitations History of Present Illness Date Seen by Provider: Feb 19, 2023 Time Seen by Provider: 18:19 Initial Comments Patient is a 47-year-old male who presents to the emergency department with a chief complaint of headache. He states headache onset about 2 days ago. He s tates within 30 minutes it was at its worst. Nothing makes it any better. He has tried ibuprofen without any relief. His last dose was at noon. He denies any associated symptoms such as nausea, vision changes, speech deficits, unilateral weakness numbness or tingling. He does mention over the last couple of weeks he has had some "tingling" in his left posterior shoulder. He denies any new problems with balance or coordination. No chest pain or shortness of breath. 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 He endorses significant family history of hypertension/coronary artery disease. He had a brother that required double bypass at the age of 45 after sudden cardiac on a treadmill. His primary care doctor is . He is on a statin as well as 20 mg of lisinopril daily. He states he does take his lisinopril in the morning. No neck pain. No trauma. Timing/Duration: 1-2 days Severity: moderate Activities at Onset: none Associated Systoms: Denies Symptoms Allergies and Home Medications Allergies Coded Allergies: NKANo Known Allergies (Unverified Allergy, Mild, 11/22/08) No Known Drug Allergies (Verified , 10/18/08) Patient Home Medication List Home Medication List Reviewed: Yes Carbamazepine (Carbamazepine) 200 Mg Cpmp.12hr, (Reported) Entered as Reported by: HAILY JAMISON on 07/02/201758 Cephalexin (Cephalexin) 500 Mg Tablet, 500 MG PO QID Prescribed by: PEPPER ANDINO on 02/25/221956 Escitalopram Oxalate (Escitalopram Oxalate) 20 Mg Tablet, (Reported) Entered as Reported by: HAILY JAMISON on 07/02/201758 Prednisone (Prednisone) 20 Mg Tab, 40 MG PO DAILY Prescribed by: NIKKO BARBOSA on 02/24/21 1148 Review of Systems Review of Systems Constitutional: see HPI EENTM: No Symptoms Reported Respiratory: No Symptoms Reported Cardiovascular: Other (occasional "pinch" in his left pec muscle) Gastrointestinal: No Symptoms Reported Genitourinary: No Symptoms Reported Musculoskeletal: joint pain (left shoulder "tingling") Skin: no symptoms reported Psychiatric/Neurological: Headache, Other (chronic weakness LLE) All Other Systems Reviewed Negative Unless Noted: Yes Past Pdqhqlq-Pqubyu-Xcbcqt Hx Patient Social History Tobacco Use?: No Substance use?: No Alcohol Use?: No Immunizations Up To Date Tetanus Booster (TDap): Less than 5yrs Seasonal Allergies Seasonal Allergies: No Past Medical History Surgery/Hospitalization HX: htn, chronic back pain Surgeries: Yes (BACK SURGERY; CARDIAC CATH-NO INTERVENTION) Cardiac, Orthopedic Respiratory: No Cardiac: Yes (HEART CATH) Hypertension Neurological: No Reproductive Disorders: No Sexually Transmitted Disease: No Genitourinary: No Gastrointestinal: No Musculoskeletal: Yes (BACK SURGERY) Chronic Back Pain Endocrine: No HEENT: No Cancer: No Psychosocial: No Integumentary: No Blood Disorders: No Family Medical History CARDIAC CATH 02/17/[address] LIGHT--SCREENING EXAM DUE TO VERY STRONG HISTORY OF CARDIOVASCULAR DISEASE ESSENTIALLY NORMAL EXAM, WITH EF OF 60% Physical Exam Vital Signs Vital Signs - First Documented 02/19/23 18:13 Temp 37.2 Pulse 105 Resp 18 B/P (MAP) 152/96 (114) Pulse Ox 96 Capillary Refill : Height, Weight, BMI Height: 5'8" Weight: 234lbs. oz. 106.161583ro; 35.00 BMI Method:Stated General Appearance: No Apparent Distress, WD/WN HEENT: PERRL/EOMI, Pharynx Normal, Moist Mucous Membranes; No Photophobia Neck: Full Range of Motion, Non Tender Respiratory: Lungs Clear, Normal Breath Sounds, No Accessory Muscle Use, No Respiratory Distress Cardiovascular: Regular Rate, Rhythm, Normal Peripheral Pulses Extremity: Normal Capillary Refill, Normal Inspection, Normal Range of Motion Neurologic/Psychiatric: Alert, Oriented x3, Normal Mood/Affect, community relations director II-XII Norm as Tested; No EOM Palsy, No Facial Droop, No Motor Weakness; Sensory Deficit (left anterior lower leg) Skin: Normal Color, Warm/Dry Procedures/Interventions Suture Size: 4-0 Progress/Results/Core Measures Results/Orders Lab Results Laboratory Tests Test 02/19/23 18:16 Range/Units White Blood Count 6.1 4.3-11.0 10^3/uL Red Blood Count 5.04 4.30-5.52 10^6/uL Hemoglobin 16.4 13.3-17.7 g/dL Hematocrit 48 40-54 % Mean Corpuscular Volume 94 80-99 fL Mean Corpuscular Hemoglobin 33 25-34 pg Mean Corpuscular Hemoglobin Concent 35 32-36 g/dL Red Cell Distribution Width 11.9 10.0-14.5 % Platelet Count 203 130-400 10^3/uL Mean Platelet Volume 9.1 9.0-12.2 fL Immature Granulocyte % (Auto) 0 % Neutrophils (%) (Auto) 63 42-75 % Lymphocytes (%) (Auto) 27 12-44 % Monocytes (%) (Auto) 7 0-12 % Eosinophils (%) (Auto) 2 0-10 % Basophils (%) (Auto) 1 0-10 % Neutrophils # (Auto) 3.9 1.8-7.8 10^3/uL Lymphocytes # (Auto) 1.7 1.0-4.0 10^3/uL Monocytes # (Auto) 0.4 0.0-1.0 10^3/uL Eosinophils # (Auto) 0.1 0.0-0.3 10^3/uL Basophils # (Auto) 0.0 0.0-0.1 10^3/uL Immature Granulocyte # (Auto) 0.0 0.0-0.1 10^3/uL Prothrombin Time 12.8 12.2-14.7 SEC INR Comment 0.9 0.8-1.4 Activated Partial Thromboplast Time 27 24-35 SEC Sodium Level 139 135-145 MMOL/L Potassium Level 4.1 3.6-5.0 MMOL/L Chloride Level 102 98-107 MMOL/L Carbon Dioxide Level 24 21-32 MMOL/L Anion Gap 13 5-14 MMOL/L Blood Urea Nitrogen 18 7-18 MG/DL Creatinine 0.86 0.60-1.30 MG/DL Estimat Glomerular Filtration Rate 109 BUN/Creatinine Ratio 21 Glucose Level 147 H 70-105 MG/DL Calcium Level 9.3 8.5-10.1 MG/DL My Orders Orders - FABIAN CALDWELL MD Ed Iv/Invasive Line Start (02/19/23 18:36) Cbc With Automated Diff (02/19/23 18:36) Basic Metabolic Panel (02/19/23 18:36) Protime With Inr (02/19/23 18:36) Partial Thromboplastin Time (02/19/23 18:36) Ct Head Wo (02/19/23 18:36) Ketorolac Injection (Ketorolac Injection (02/19/23 19:30) Orphenadrine Inj (Ed Only) (Orphenadrine (02/19/23 19:30) Ns Iv 500 Ml (Ns Iv 500 Ml) (02/19/23 19:16) Medications Given in ED Current Medications Medications Dose Ordered Sig/Siri Route Start Time Stop Time Status Last Admin Dose Admin Ketorolac Tromethamine 15 mg ONCE ONCE IVP 02/19/23 19:30 02/19/23 19:31 DC 02/19/23 19:31 15 MG Orphenadrine Citrate 60 mg ONCE ONCE IV 02/19/23 19:30 02/19/23 19:31 DC 02/19/23 19:31 60 MG Vital Signs/I&O 02/19/23 02/19/23 18:13 20:26 Temp 37.2 Pulse 105 76 Resp 18 18 B/P (MAP) 152/96 (114) 125/88 Pulse Ox 96 96 Blood Pressure Mean: 114 Progress Progress Note : Time: 20:14 Progress Note Patient seen and evaluated by me. Evaluation today includes physical exam, CBC, BMP and coag panel. Pertinent physical exam findings include - WDWN male, who appears slightly anxious with incr BP at 152/96. Heart is regular. Lungs clear with ramon and unlabored resps. He is afebrile. No concerning findings on neuro exam - except for his chronic weakness LLE (old ICH) and minimal weakness left hand. He has pre-existing "numbness" to left anterior rosario. otherwise no new focal findings or lateralizing signs. DDx based on h&p - migraine, dehydration, headache due to HTN, new ICH/SAH Labs independently reviewed and interpreted by me, HIs CBC is normal, BMP pertinent only for slightly elevated glucose at 147. Coag panel WNL. CT Head, no acute findings. Patient was treated with toradol 15mg, Norflex 60mg IV and 500ml of NS. After fluids finished, patient was reassessed and stated that he felt "50-60% better". I advised him the only way to rule out a new SAH was to perform a lumbar puncture (at this stage 2-3 days in to the [place]). I advised of the risks of worsening headache, seizure and . He feels like he would like to wait, as his exam is normal and he feels better. Would like to talk to his PCP. His BP has come down nicely - on d/c 125/88. Recc OTC excedrin or Ibuprofen. Strict return precautions provided. Patient encouraged to come back at any time if he became concerned about his headache again. seems comfortable with the plan of care. All questions are sought and answered. Diagnostic Imaging Diagonstic Imaging: CT Comments [facility] [place], [place] NAME: JENNIFER PORRAS [facility] REC#: [id number] PT STATUS: DEP ER : 1975 PHYSICIAN: FABIAN CALDWELL MD ADMIT DATE: 02/19/23/ER Signed Date of Exam:02/19/23 CT HEAD WO EXAMINATION: CT head without contrast. TECHNIQUE: Multiple contiguous axial images were obtained through the brain without the use of intravenous contrast. All CT scans use one or more of the following dose optimizing techniques: automated exposure control, MA and/or KvP adjustment based on patient size and exam type or iterative reconstruction. HISTORY: Severe headache COMPARISON: None available. FINDINGS: The broussard-white matter differentiation is normal. No mass effect or midline shift. The ventricles are normal in size and configuration. Basilar cisterns are patent. There are no intra- or extra-axial fluid collections. There is no intracranial hemorrhage. The orbits are normal. There is sphenoid sinus mucosal disease. Mastoid air cells are clear. No soft tissue abnormality is seen. No osseus lesions or fractures are seen. IMPRESSION: 1. No acute intracranial abnormality. Dictated by: Dictated on workstation # [id number] Dict: 02/19/23 1903 Trans: 02/19/23 2047 CHAY [id number] Interpreted by: ABY CHAPMAN MD Electronically signed by: ABY CHAPMAN MD 02/19/232046 Departure Impression Primary Impression: Headache Qualified Codes: R51.9 - Headache, unspecified Additional Impression: High blood pressure Qualified Codes: I10 - Essential (primary) hypertension Disposition: 01 HOME, SELF-CARE Condition: Improved Departure-Patient Inst. Decision time for Depature: 20:15 Referrals: DAGOBERTO ARROYO MD (PCP/Family) Primary Care Physician Patient Instructions: Controlling your blood pressure through lifestyle, Home Headache Remedies Add. Discharge Instructions: Continue your daily medications as prescribed. You can take 800mg of Ibuprofen every 8 hours with food as needed for headache. OR extra strength Excerdrin 2 pills every 6 hours. PLease call and follow up with your primary care doctor tomorrow. Return to the Emergency Department for any new, concerning or emergent complaints.=, especially if your headache comes back worse or with vision changes or vomiting. Copy Copies To 1: DAGOBERTO ARROYO MD, KATHRYN M MD Feb 19, 2023 18:19
[2023-02-19 18:50] LABS: BASOPHILS % (AUTO) 1 % (0-10); EOSINOPHILS # (AUTO) 0.1 10^3/uL (0.0-0.3); EOSINOPHILS % (AUTO) 2 % (0-10); HEMATOCRIT 48 % (40-54); HEMOGLOBIN 16.4 g/dL (13.3-17.7); LYMPHOCYTES # (AUTO) 1.7 10^3/uL (1.0-4.0); LYMPHOCYTES % (AUTO) 27 % (12-44); MEAN CORPUSCULAR HEMOGLOBIN 33 pg (25-34); MEAN CORPUSCULAR HGB CONC 35 g/dL (32-36); MEAN CORPUSCULAR VOLUME 94 fL (80-99); MEAN PLATELET VOLUME 9.1 fL (9.0-12.2); MONOCYTES # (AUTO) 0.4 10^3/uL (0.0-1.0); MONOCYTES % (AUTO) 7 % (0-12); NEUTROPHILS # (AUTO) 3.9 10^3/uL (1.8-7.8); NEUTROPHILS % (AUTO) 63 % (42-75); PLATELET COUNT 203 10^3/uL (130-400); WHITE BLOOD COUNT 6.1 10^3/uL (4.3-11.0)
[2023-02-19 18:52] LABS: POTASSIUM 4.1 MMOL/L (3.6-5.0)
[2023-02-19 18:53] LABS: CALCIUM 9.3 MG/DL (8.5-10.1)
[2023-02-19 18:58] LABS: CREATININE SERUM 0.86 MG/DL (0.60-1.30)
[2023-02-19 19:02] LABS: INR 0.9 (0.8-1.4); PROTHROMBIN TIME PATIENT 12.8 SEC (12.2-14.7)
--- NOTE | 2023-02-19 19:08 | Diagnostic Imaging Report ---
EXAMINATION: CT head without contrast. TECHNIQUE: Multiple contiguous axial images were obtained through the brain without the use of intravenous contrast. All CT scans use one or more of the following dose optimizing techniques: automated exposure control, MA and/or KvP adjustment based on patient size and exam type or iterative reconstruction. HISTORY: Severe headache COMPARISON: None available. FINDINGS: The broussard-white matter differentiation is normal. No mass effect or midline shift. The ventricles are normal in size and configuration. Basilar cisterns are patent. There are no intra- or extra-axial fluid collections. There is no intracranial hemorrhage. The orbits are normal. There is sphenoid sinus mucosal disease. Mastoid air cells are clear. No soft tissue abnormality is seen. No osseus lesions or fractures are seen. IMPRESSION: 1. No acute intracranial abnormality. Dictated by: Dictated on workstation # [id number]
[2023-02-19] MEDS ORDERED: NS IV 500 ML 500 ML IV STA (19:16)
[2023-02-19] MEDS ORDERED: ORPHENADRINE 60 MG/2 ML AMP (ED ONLY) IV ONE (19:30)
[2023-02-19] MEDS ORDERED: KETOROLAC INJ 15 MG/ML VIAL IVP ONE (19:30)
[2023-02-19 20:26] VITALS: BP 125/88
== END 2023-02-19 20:26 | disposition home or self-care (01) ==
LOC: EDUNIT# 18:03 → ER 18:09
DX: I10 Essential (primary) hypertension (principal); Z98.61 Coronary angioplasty status
CPT/HCPCS: 36415; 70450; 80048; 85025; 85610; 85730